=== PATIENT | female | born 1960 | race Two or more races ===

== ENCOUNTER 2019-10-26 12:15 | Inpatient (IN) | payer OTHER ==
[~2019-10-26] VITALS: Ht 167.6 cm; Wt 62.1 kg
[2019-11-03] MEDS ORDERED: NORVASC5 MG PO (16:24)
== END 2019-11-13 16:31 | disposition home or self-care (01) | DRG 331 ==
LOC: SURH 11-10 06:05 → O/R 11-10 06:05 → SURH 11-10 10:15
PROVIDERS: ADMIT Colon & Rectal Surgery; ATTEND Colon & Rectal Surgery
PROC: 0DBN4ZZ Excision of Sigmoid Colon, Percutaneous Endoscopic Approach (ICD-10-PCS; 2019-11-10)
PROC: 0DJD8ZZ Inspection of Lower Intestinal Tract, Via Natural or Artificial Opening Endoscopic (ICD-10-PCS; 2019-11-10)
PROC: 0DTP4ZZ Resection of Rectum, Percutaneous Endoscopic Approach (ICD-10-PCS; principal; 2019-11-10 10:15)
DX: K57.30 Diverticulosis of large intestine without perforation or abscess without bleeding (principal); I11.9 Hypertensive heart disease without heart failure

== ENCOUNTER 2019-12-02 09:40 | Inpatient (IN) | payer OTHER ==
[~2019-12-02] VITALS: Ht 167.6 cm; Wt 60.8 kg
[~2019-12-02 09:40] MED LIST: NORVASC5 MG PO
--- NOTE | 2019-12-02 09:53 | NUR ---
se recibe paciente femenina de 59 anos de edad ambulando alerta y consciente con queja principal de diarreas. la misma refiere sheng sido operada por Dr. Garcia de diverticulos alrededor de hace un mes y el cual indica que viniera para evaluarla. se irina signos vitales y se ubica en pasillo para evaluacion medica
--- NOTE | 2019-12-02 10:17 | NUR ---
SE ORIENTA A PTE SOBRE PROCESO DE VENOPUNCION, JIMMIE DE MUESTRAS, ADMINISTRACION DE MEDICAENTOS. PTE REFIERE ENTENDER INF CLAIRE SE ORIENTA SOBRE JIMMIE DE CULTIVOS.
--- NOTE | 2019-12-02 15:33 | NUR ---
PT ALERTA Y ORIENTADA X3 ESFERAS SE RECIBE EN PETER CON BARANDAS ELEVADAS Y FRENOS COLOCADOS. HEPARIN LOCK E IVLFUIDS PATENTES. PT [place]. SE MANTIENE BAJO OBSERVACION POR CAMBIOS EN TAMANNA.
== END 2019-12-03 15:00 | disposition left against medical advice (07) | DRG 373 ==
LOC: ER 09:40 → SEC-K 15:54 → SURG 12-03 01:38 → SEC-K 12-03 02:02 → SURG 12-03 02:15 → SEC-K 12-03 02:19
PROVIDERS: ADMIT Colon & Rectal Surgery; ATTEND Colon & Rectal Surgery
PROC: BW21ZZZ Computerized Tomography (CT Scan) of Abdomen and Pelvis (ICD-10-PCS; principal; 2019-12-02)
DX: A04.72 Enterocolitis due to Clostridium difficile, not specified as recurrent (principal); I11.9 Hypertensive heart disease without heart failure; E87.6 Hypokalemia; Z20.828 Contact with and (suspected) exposure to other viral communicable diseases; Z53.29 Procedure and treatment not carried out because of patient's decision for other reasons